=== PATIENT | female | born 1995 | race Caucasian/White ===

== ENCOUNTER → 2018-12-27 | Outpatient (CLI) | payer OTHER ==
[2018-12-27 17:34] LABS: BASO % 0.4 % (0.0-1.0); EOS % 0.3 % (0.0-3.0); HEMATOCRIT 36.9 % (36.0-47.0); LYMPH # 1.6 10^3/uL (1.5-6.5); LYMPH % 13.9 % (24.0-44.0); MEAN CORPUSCULAR HGB CONC 35.2 g/dl (32.0-36.5); MEAN CORPUSCULAR VOLUME 93.7 fl (80.0-96.0); MONO # 0.5 10^3/uL (0.0-0.8); MONO % 4.3 % (0.0-5.0); NEUTROPHILS % 80.7 % (36.0-66.0); PLATELET COUNT, AUTOMATED 300 10^3/uL (150-450); RED BLOOD COUNT 3.94 10^6/uL (4.00-5.40); WHITE BLOOD COUNT 11.2 10^3/uL (4.0-10.0)
[2018-12-27 18:11] LABS: GC DNA AMPLIFICATION NEGATIVE (NEGATIVE)
[2018-12-28 09:26] LABS: HIV 1&2 SCREEN CENTAUR NEGATIVE (NEGATIVE); RUBELLA IgG QUALITATIVE IMMUNE (IMMUNE)
[2018-12-28 10:21] LABS: CHLAMYDIA DNA AMPLIFICATION NEGATIVE (NEGATIVE)
== END ==
LOC: M LRY 12:00
PROVIDERS: ATTEND Advanced Practice Midwife
DX: Z34.81 Encounter for supervision of other normal pregnancy, first trimester (principal); Z3A.13 13 weeks gestation of pregnancy

== ENCOUNTER → 2019-01-26 | Outpatient (CLI) | payer OTHER ==
--- NOTE | 2019-01-26 15:11 | REP ---
Clinical: Anatomical evaluation. Comparison: None . Findings: Examination demonstrates a single live intrauterine in cephalic presentation. motion is identified by technologist. Placenta is noted anterior and grade grade zero without evidence for placenta previa or abruption. Amniotic fluid volume is normal. Cervix measures 4.1 cm in length and appears closed. No evidence for nuchal cord. Gestational age by LMP 18 weeks 6 days with DESEAN 06/23/2019 . Gestational age by current measurements 20 weeks 0 days with DESEAN 06/15/2019 . FHR equals 131 beats per minute. BPD 4.8 cm 20 weeks 3 days HC 18.1 cm 20 weeks 4 days AC 14.4 cm 19 weeks 5 days FL 3.3 cm 20 weeks 1 day HL 3.1 cm 20 weeks 2 days HC/AC ratio 1.26 Estimated weight 326 grams ( 47 percentile by current measurements; 91 percentile by LMP). Anatomical assessment demonstrates normal structures including cranium, choroid plexus, cavum, cerebellum/posterior fossa, lungs, four-chamber heart, diaphragm, stomach, cord insertion/three-vessel cord, kidneys/bladder, spine, and extremities. Limited evaluation of the facial features and cardiac ventricular outflow tracts. Impression: 1. Single live intrauterine demonstrating appropriate interval growth. 2. Limited evaluation of the facial features and cardiac ventricular outflow tracts may warrant reevaluation and follow-up. Remainder of the anatomical assessment is complete and normal. Electronically Signed by Yonas Shaffer MD 01/26/2019 03:02 P
== END ==
LOC: M LRY 13:16
PROVIDERS: ATTEND Advanced Practice Midwife
DX: Z34.82 Encounter for supervision of other normal pregnancy, second trimester (principal); Z3A.20 20 weeks gestation of pregnancy

== ENCOUNTER → 2019-02-22 | Outpatient (CLI) | payer OTHER ==
--- NOTE | 2019-02-22 15:14 | REP ---
OBSTETRIC SONOGRAPHY: HISTORY: Followup anatomy, facial features and outflow tract views. FINDINGS: Scanning through the gravid uterus demonstrates a viable single intrauterine gestation in a cephalic lie. motion is observed and heart rate is recorded at 150 beats per minute. An anterior grade 1 placenta is seen without evidence of previa. Amniotic fluid is subjectively normal. Closed cervical length is 3.4 cm measured transabdominally. No extrauterine abnormality is observed. There has been appropriate interval growth. No anomaly is seen. The following anatomic structures are identified today and felt to be unremarkable: cranium, choroid plexus, cavum, cerebellum posterior fossa, face and profile, lungs, four-chamber heart with left and right ventricular outflow tract views, diaphragm, left-sided stomach, abdominal wall cord insertion, three-vessel cord, kidneys and bladder, spine, upper and lower extremities. Biometry Chart: BPD 5.6 cm = 23 weeks 1 day HC 20.9 cm = 23 weeks 0 days AC 18.8 cm = 23 weeks 4 days FL 4.0 cm = 23 weeks 0 days HL 3.9 cm = 23 weeks 5 days CD 2.5 cm = 22 weeks 5 days HC/AC ratio normal 1.12. Cephalic index normal 0.74 Estimated weight 576 grams, 1 pound 4 ounces, 27th percentile for 23 weeks 6 days. IMPRESSION: Viable single intrauterine gestation at 22 weeks 6 days by today's composite sonographic criteria. Expected gestational age estimate based on prior sonography is 23 weeks 6 days. DESEAN by prior sonography June 15, 2019. anatomic survey is felt to be complete. Electronically Signed by Paulo Ku MD 02/22/2019 03:41 P
== END ==
LOC: M SMT 09:25
PROVIDERS: ATTEND Advanced Practice Midwife
DX: Z34.02 Encounter for supervision of normal first pregnancy, second trimester (principal); Z3A.22 22 weeks gestation of pregnancy

== ENCOUNTER → 2019-03-21 | Outpatient (CLI) | payer OTHER ==
[2019-03-21 14:12] LABS: BASO # 0.1 10^3/uL (0.0-0.2); BASO % 0.4 % (0.0-1.0); EOS % 0.4 % (0.0-3.0); HEMATOCRIT 35.7 % (36.0-47.0); HEMOGLOBIN 12.1 g/dl (12.0-15.5); LYMPH # 1.7 10^3/uL (1.5-6.5); LYMPH % 15.2 % (24.0-44.0); MEAN CORPUSCULAR HEMOGLOBIN 31.9 pg (27.0-33.0); MEAN CORPUSCULAR HGB CONC 33.9 g/dl (32.0-36.5); MEAN CORPUSCULAR VOLUME 94.2 fl (80.0-96.0); MONO # 0.6 10^3/uL (0.0-0.8); MONO % 5.6 % (0.0-5.0); NEUTROPHILS # 8.9 10^3/uL (1.8-7.7); PLATELET COUNT, AUTOMATED 238 10^3/uL (150-450); RED BLOOD COUNT 3.79 10^6/uL (4.00-5.40); WHITE BLOOD COUNT 11.4 10^3/uL (4.0-10.0)
== END ==
LOC: M LRY 09:06
PROVIDERS: ATTEND Advanced Practice Midwife
DX: Z34.83 Encounter for supervision of other normal pregnancy, third trimester (principal); Z3A.00 Weeks of gestation of pregnancy not specified
CPT/HCPCS: 36415; 82950; 85025; 86850; 86900; 86901; J2790

== ENCOUNTER → 2019-05-08 | Outpatient (REF) | payer OTHER | LOC: M LAB REF 13:06 | PROVIDERS: ATTEND Advanced Practice Midwife | DX: Z34.03 Encounter for supervision of normal first pregnancy, third trimester (principal) ==

== ENCOUNTER → 2019-05-30 | Outpatient (REF) | payer OTHER | LOC: M LAB REF 17:00 | PROVIDERS: ATTEND Advanced Practice Midwife | DX: Z34.03 Encounter for supervision of normal first pregnancy, third trimester (principal) ==

== ENCOUNTER → 2019-06-06 | Outpatient (CLI) | payer OTHER | LOC: M SMT 09:34 | PROVIDERS: ATTEND Advanced Practice Midwife | DX: Z34.03 Encounter for supervision of normal first pregnancy, third trimester (principal); Z36.89 Encounter for other specified antenatal screening ==

== ENCOUNTER 2019-06-30 | Inpatient (IN) | payer OTHER ==
[2019-06-30] VITALS (40 sets, daily range): BP systolic 93–132; BP diastolic 55–87
[~2019-06-30] VITALS: Ht 172.7 cm; Wt 81.0 kg
[2019-06-30] MEDS ORDERED: PRENTAB9 PO (00:37)
[2019-06-30] MEDS ORDERED: PENICILLIN G POTASSIUM IV 5 MU in D5W MINI-BAG PLUS 100 ML IV STA (00:45)
[2019-06-30] MEDS ORDERED: LACTATED RINGER'S 1000 ML IV STA (00:45)
--- NOTE | 2019-06-30 00:58 | HPEPDOC ---
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 Past Medical History Surgical History: Denies/None Family History Significant Family History: Hypertension Social History Marital Status: Single Family situation: Spouse/partner home Psychosocial History: No pertinent psych hx * Smoker: non-smoker Alcohol: Denies Drugs: denies Abuse Violence Screening Have you been hit/kicked/slapp: No Imunizations Tdap status: declined Allergies Coded Allergies: No Known Allergies (Unverified , 06/30/19) Medications Scheduled No.137/Iron/Folic Acd ( Vitamin Tablet) 1 Each Tablet, 1 TAB PO DAILY Physical Examination Physical Examination GENERAL: Alert and oriented times three. BREAST: . ABDOMEN: Gravid and non-tender to touch. FETUS: Is vertex (VTX) by sterile vaginal examination (SVE), fetus is vertex (VTX) by Aidan. HEART RATE: Regular rate and rhythm. LUNGS: Clear to auscultation (CTA). EXTREMITIES: No edema. No clonus. Deep tendon reflexes (DTRs) + 2. Laboratory Data 24H LABS Laboratory Tests 2 06/30/19 00:08: Serology Scanned Report Hepatitis B Testing Pertinent Laboratoy Data Blood Type: O- RBC Antibody Screen: Negative HIV: Negative Hepatitis B: Negative Hepatitis C: Negative Rapid Plasma Reagin: Nonreactive Rubella: Immune Chlamydia/Gonorrhea: Negative Group B Streptococcus: Positive Quad Screen Test: Declined Glucose Tolerance Test: 87 Anatomy Ultrasound Ultrasound Date: Jan 26, 2019 Placenta Location: Posterior Normal Anatomy: Yes Placenta Previa: No Estimated Weight (grams): 326 (47%) Other Ultrasounds 12/19/18 advanced gestation 02/22/19 anterior placenta, no previa, 576gm 27% Steroid Therapy Steroid Therapy: No Vaginal Examination Dilation: 2cm Effacement: 80% Station: -3 Cervical Consistency: Medium Cervical Position: Posterior Presentation: Cephalic presentation Assessment Heart Rate (FHR): 130 Variability: Moderate Accelerations: Positive Decelerations: None Tocometer Contractions: Yes Frequency: every 2-5 min. Strength: palpated as mild Assessment/Plan Assessment Patricia is a 23-year-old (G)1 para (P)0-0-0-0 at 41+0 weeks by 19-week ultrasound. Presents to Labor and Delivery (L&D) with reports of large gush of clear fluid @ 2310. Denies continued leakage of fluid. No bleeding. Fetus is active. Pt states she felt cramping all day but that contractions have picked up since the leakage. SVE membranes are palpable. 2/80/-3, moderate texture. Pt is scheduled for induction later today Plan Admit and orient. Home And Family Living Professor and consent. Diet: regular. Group B Streptococcus (GBS) positive. Labs and intravenous (IV) per unit protocol. Counseled on Pitocin and induction of labor (IOL). Lactated Ringers (LR): Bolus 500 mL, then saline lock. Planning epidural Anticipate normal spontaneous delivery (). C-S as appropriate. Sherita Gomez CNM Jun 30, 2019 00:58
[2019-06-30 01:10] LABS: HEMATOCRIT 33.3 % (36.0-47.0); HEMOGLOBIN 11.2 g/dl (12.0-15.5); MEAN CORPUSCULAR HEMOGLOBIN 29.6 pg (27.0-33.0); MEAN CORPUSCULAR HGB CONC 33.6 g/dl (32.0-36.5); MEAN CORPUSCULAR VOLUME 88.1 fl (80.0-96.0); PLATELET COUNT, AUTOMATED 220 10^3/uL (150-450); RED BLOOD COUNT 3.78 10^6/uL (4.00-5.40); WHITE BLOOD COUNT 12.3 10^3/uL (4.0-10.0)
[2019-06-30] MEDS ORDERED: miSOPROStol 50 MCG 1/2 TAB (S0191) PO SCH (02:00)
[2019-06-30] MEDS: PENICILLIN G POTASSIUM IV 2.5 MU in APPROPRIATE DILUENT 1 EA IV SCH ×5 (05:34→22:36)
--- NOTE | 2019-06-30 08:39 | IPNPDOC ---
Text Note Date of Service The patient was seen on 06/30/19. NOTE Becoming more uncomfortable, considering epidural FH 130, Cat I UC 3-4 minutes x 45-120 seconds SVE 3-4/90/-1, bulging forebag Start pitocin, plan epidural VS,Fishbone, I+O VS, Fishbone, I+O Laboratory Tests 06/30/19 01:04 Red Blood Count 3.78 L, Mean Corpuscular Volume 88.1, Mean Corpuscular Hemoglobin 29.6, Mean Corpuscular Hemoglobin Concent 33.6, Red Cell Distribution Width 11.9 Vital Signs Date Time Temp Pulse Resp B/P (MAP) Pulse Ox O2 Delivery O2 Flow Rate FiO2 06/30/19 07:15 97.4 47 16 115/69 (84) I&O- Last 24 Hours up to 6 AM 06/30/19 06:00 Intake Total 700 ml Balance 700 ml Sherita Gomez CNM Jun 30, 2019 08:39
[2019-06-30] MEDS ORDERED: OXYTOCIN DRIP 30 UNITS in APPROPRIATE DILUENT 1 EA IV SCH ×2 (08:45→20:45)
[2019-06-30] MEDS ORDERED: FENTANYL 2MCG/ML ROPIVACAINE 0.2% IN 0.9% NACL 100ML IVBAG As Ordered ONE (09:02)
[2019-06-30] MEDS: LR 1,000 ML IV SCH ×2 (09:31→15:46)
[2019-06-30] MEDS ORDERED: NALOXONE INJ 0.4 MG/1 ML VIAL (J2310) IV PRN (10:15)
[2019-06-30] MEDS ORDERED: REFRIGERATOR IV KEYS XX PRN (10:15)
[2019-06-30] MEDS ORDERED: ePHEDrine SULFATE 25 MG/5 ML(5MG/ML) SYRINGE IV PRN (10:15)
[2019-06-30] MEDS ORDERED: LACTATED RINGER'S 1000 ML IV PRN (10:15)
[2019-06-30] MEDS ORDERED: EPIDURAL/PCA KEYS XX PRN (10:15)
[2019-06-30] MEDS ORDERED: ONDANSETRON 4MG/2ML VIAL (J2405) IV PRN (10:15)
[2019-06-30] MEDS ORDERED: diphenhydrAMINE INJ 50MG/ML VIAL (J1200) IV PRN (10:15)
[2019-06-30] MEDS ORDERED: EPIDURAL COMMENT XX SCH (10:15)
[2019-06-30] MEDS: FENTANYL/ROPIVACAINE/NACL BAG 100 ML EPIDURAL SCH ×2 (13:23→17:39)
[2019-07-01] VITALS (10 sets, daily range): BP systolic 103–129; BP diastolic 64–82
[2019-07-01] MEDS ORDERED: OXYTOCIN DRIP 30 UNITS in APPROPRIATE DILUENT 1 EA IV SCH ×3 (02:14→03:15)
[2019-07-01] MEDS ORDERED: LR 1,000 ML IV SCH ×2 (02:14→03:15)
[2019-07-01] MEDS ORDERED: IBUPROFEN 800 MG TAB PO PRN ×3 (02:15→03:15)
[2019-07-01] MEDS ORDERED: DIBUCAINE 1% OINTMENT 30GM TOP PRN ×2 (02:15→03:15)
[2019-07-01] MEDS ORDERED: IBUPROFEN 600 MG TAB PO PRN (02:15)
[2019-07-01] MEDS ORDERED: MEASLES,MUMPS,RUBELLA VACCINE INJ (MMR-II) (90707) SC SCH ×2 (02:15→03:15)
[2019-07-01] MEDS ORDERED: PROMETHAZINE 25 MG TAB PO PRN ×3 (02:15→03:15)
[2019-07-01] MEDS ORDERED: ACETAMINOPHEN 500 MG TAB PO PRN ×3 (02:15→03:15)
[2019-07-01] MEDS ORDERED: ONDANSETRON 4MG/2ML VIAL (J2405) IV PRN ×3 (02:15→03:15)
[2019-07-01] MEDS ORDERED: DOCUSATE SODIUM 100 MG CAP PO PRN ×3 (02:15→03:15)
[2019-07-01] MEDS ORDERED: RHOGAM 300 MCG (1500 IU) INJ (J2790) IM SCH ×2 (02:15→03:15)
[2019-07-01] MEDS ORDERED: ACETAMINOPHEN TAB 650MG DOSE (2X325MG) PO PRN ×2 (02:15→03:15)
[2019-07-01 02:23] LABS: CORD GAS ABE A -11.9; CORD GAS HCO3 A 19.9 MEQ/L; CORD GAS O2 SAT A 68.4 %; CORD GAS PCO2 A 69.8 mmHg; CORD GAS PH A 7.072 UNITS; CORD GAS SBC A 14.8 MEQ/L
[2019-07-01 02:25] LABS: CORD GAS ABE V -8.6; CORD GAS O2 SAT V 67.5 %; CORD GAS PCO2 V 46.5 mmHg; CORD GAS PH V 7.23 UNITS; CORD GAS PO2 V 32.6 mmHg; CORD GAS SBC V 17.1 MEQ/L; CORD GAS TCO2 V 20.5 MEQ/L
[2019-07-01] MEDS ORDERED: SLF 3 ML SYR IV PRN (04:45)
[2019-07-01] MEDS: PRENATAL VITAMINS CHEWABLE TABLET PO SCH (07:52)
[2019-07-01] MEDS: IBUPROFEN 600 MG TAB PO PRN (07:53)
[2019-07-01] MEDS ORDERED: PRENATAL VITAMINS CHEWABLE TABLET PO SCH (09:00)
[2019-07-02 06:30] VITALS: BP 109/57
[2019-07-02] MEDS: PRENATAL VITAMINS CHEWABLE TABLET PO SCH (07:36)
[2019-07-02 18:00] VITALS: BP 111/58
[2019-07-03 06:22] VITALS: BP 113/66
[2019-07-03] MEDS ORDERED: IBUP80TA PO (07:59)
[2019-07-03] MEDS ORDERED: ACET-683 PO (07:59)
[2019-07-03] MEDS: IBUPROFEN 600 MG TAB PO PRN (08:00)
[2019-07-03] MEDS: PRENATAL VITAMINS CHEWABLE TABLET PO SCH (08:36)
== END 2019-07-03 13:10 | disposition home or self-care (01) | DRG 560 ==
LOC: M LDI → M OBS 07-01 04:01
PROVIDERS: ADMIT Advanced Practice Midwife; ATTEND Obstetrics & Gynecology
PROC: 10E0XZZ Delivery of Products of Conception, External Approach (ICD-10-PCS; principal; 2019-07-01)
DX: O48.0 Post-term pregnancy (principal); Z3A.41 41 weeks gestation of pregnancy; O99.824 Streptococcus B carrier state complicating childbirth; Z37.0 Single live birth

== ENCOUNTER 2019-08-09 14:37 | Emergency (ER) | payer OTHER, MEDICAID ==
[~2019-08-09] VITALS: Ht 172.7 cm; Wt 72.6 kg
[~2019-08-09 14:37] MED LIST: ACET-683 PO; IBUP80TA PO; PRENTAB9 PO
[2019-08-09] MEDS ORDERED: NS 1,000 ML IV SCH (15:06)
[2019-08-09 16:04] LABS: BASO # 0.1 10^3/uL (0.0-0.2); BASO % 0.5 % (0.0-1.0); EOS % 0.2 % (0.0-3.0); HEMATOCRIT 42.1 % (36.0-47.0); HEMOGLOBIN 13.9 g/dl (12.0-15.5); LYMPH # 1.4 10^3/uL (1.5-5.0); MEAN CORPUSCULAR VOLUME 87.7 fl (80.0-96.0); MONO # 0.5 10^3/uL (0.0-0.8); MONO % 5.2 % (0.0-5.0); NEUTROPHILS # 8.2 10^3/uL (1.5-8.5); NEUTROPHILS % 79.7 % (36.0-66.0); PLATELET COUNT, AUTOMATED 234 10^3/uL (150-450); WHITE BLOOD COUNT 10.3 10^3/uL (4.0-10.0)
[2019-08-09] MEDS ORDERED: ACETAMINOPHEN 325 MG TAB PO ONE (16:15)
[2019-08-09] MEDS ORDERED: METOCLOPRAMIDE INJ 10MG/2ML VIAL (J2765) IV ONE (16:15)
[2019-08-09 16:37] LABS: HCG, SERUM QUALITATIVE NEGATIVE (NEGATIVE)
[2019-08-09 16:42] LABS: ALBUMIN 4.3 GM/DL (3.2-5.2); ALT/SGPT 71 U/L (12-78); BILIRUBIN,DIRECT 0.1 MG/DL (0.0-0.2); BILIRUBIN,TOTAL 0.3 MG/DL (0.2-1.0); BLOOD UREA NITROGEN 8 MG/DL (7-18); CALCIUM LEVEL 9.7 MG/DL (8.5-10.1); CARBON DIOXIDE LEVEL 30 MEQ/L (21-32); CHLORIDE LEVEL 104 MEQ/L (98-107); CK-MB VALUE MASS 2.1 NG/ML (<3.6); CPK CREATINE PHOSPHOKINASE 191 U/L (26-192); CREATININE FOR GFR 1.21 MG/DL (0.55-1.30); GLOMERULAR FILTRATION RATE 58.7 (>60); GLUCOSE, FASTING 87 MG/DL (70-100); POTASSIUM SERUM 3.8 MEQ/L (3.5-5.1); SALICYLATE LEVEL < 1.7 MG/DL (5.0-30.0); SODIUM LEVEL 141 MEQ/L (136-145); TOTAL PROTEIN 8.2 GM/DL (6.4-8.2); TROPONIN I < 0.02 NG/ML (< 0.10)
[2019-08-09 16:43] LABS: ACETAMINOPHEN LEVEL < 2.0 UG/ML (10.0-30.0); ETHYL ALCOHOL (ETHANOL) < 0.003 % (0.000-0.010)
--- NOTE | 2019-08-09 16:56 | REP ---
Head CT without contrast: History: Altered mental status. Comparison study: No comparison study. CT findings: Bone window settings demonstrate an intact bony calvarium. There is no evidence of skull fracture or incidental bony calvarial lesion. The visualized paranasal sinuses appear clear. No intraorbital abnormality is seen. On soft tissue window setting images; the lateral, third, and fourth ventricles are normal in size and position. Short-white differentiation pattern is normal above and below the tentorium. There are is no evidence of intracranial hemorrhage. No mass, edema, infarction, or midline shift is seen. No extra-axial fluid collection is appreciated. Impression: Negative noncontrast head CT. Electronically Signed by Paulo Ku MD 08/09/2019 04:48 P
--- NOTE | 2019-08-09 17:27 | REP ---
Chest x-ray: Two views. History: Third mental status. . Comparison study: No comparison. . Findings: The lungs are well inflated and free of infiltrate. The pleural angles are sharp. The heart size is normal. Pulmonary vasculature is not increased. No significant bony abnormality is seen. EKG monitoring electrodes are seen. Impression: Negative chest x-ray. Electronically Signed by Paulo uK MD 08/09/2019 05:17 P
[2019-08-09 17:47] LABS: AMPHETAMINES LEVEL URINE NEGATIVE (NEGATIVE); BARBITURATES URINE NEGATIVE (NEGATIVE); BENZODIAZEPINES URINE NEGATIVE (NEGATIVE); CANNABINOIDS URINE NEGATIVE (NEGATIVE); COCAINE METABOLITE URINE NEGATIVE (NEGATIVE); METHADONE URINE NEGATIVE (NEGATIVE); OPIATES URINE NEGATIVE (NEGATIVE); PHENCYCLIDINE URINE NEGATIVE (NEGATIVE)
[2019-08-09 18:11] VITALS: BP 126/72
--- NOTE | 2019-08-09 20:39 | ECGEPIP ---
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
== END 2019-08-09 18:13 | disposition home or self-care (01) ==
LOC: EDBD 14:37 → M ED 14:37
DX: O99.355 Diseases of the nervous system complicating the puerperium (principal); R56.9 Unspecified convulsions
CPT/HCPCS: 70450; 71046; 80048; 80076; 80307; 81001; 82140; 82550; 82553; 83605; 84443; 84484; 84703; 85025; 93005; 93041; 94760; 96374; 99285; G0480; J2765

== ENCOUNTER → 2020-04-02 | Outpatient (REF) | payer OTHER, MEDICAID | LOC: M SFHCLERA 13:10 | PROVIDERS: ATTEND Physician Assistant | DX: R30.0 Dysuria (principal) ==

== ENCOUNTER → 2020-12-15 | Outpatient (CLI) | payer OTHER ==
--- NOTE | 2020-12-16 09:25 | REP ---
INDICATION: NODULE OF RT BREAST, ECHO 1ST THEN US. COMPARISON: None. TECHNIQUE: Real-time sonographic evaluation of right medial chest wall performed at the costosternal junction, superior to the right breast. FINDINGS: No cystic or solid nodule is seen. No fluid collection is seen. IMPRESSION: No sonographic abnormality right medial chest wall at the costosternal junction. <Electronically signed by Han Short > 12/16/20 [id number]
--- NOTE | 2020-12-16 09:34 | ECHO ---
DATE OF PROCEDURE: 12/15/2020 Age: 25 Gender: Female Height: 170 cm Weight: 63 kg REFERRING PHYSICIAN: Nahomy Jones PA-C INDICATION: Arrhythmia. MEASUREMENTS: IVS 0.8 cm LV 5.0 cm LVPW 0.9 cm LA 2.6 cm Aorta 2.4 cm RV 2.7 cm IVC 1.3 cm DOPPLER MEASUREMENT Mitral E wave velocity 80 Mitral A 49 E prime septal 10.3 E prime lateral 15.0 FINDINGS: This study is of good technical quality. Underlying sinus rhythm with narrow QRS complex. Normal LV size with normal LV systolic function. Estimated LVEF 60% to 65%. Right ventricle also has normal size and systolic function. Both atria appear normal. All four cardiac valves were well seen and appear normal. No pericardial effusion is noted. Inferior vena cava is of normal size and appropriately collapses with inspiration indicative of normal central venous pressure. Aortic root, aortic arch, and visualized segment of the abdominal aorta all appear normal. Doppler interrogation reveals competent aortic valve. There is trace mitral and trace tricuspid insufficiency. Calculated pulmonary artery pressure is around 20 mmHg corresponding to normal values. The pulmonic valve is functionally competent. Mitral inflow pattern and tissue Doppler imaging of the mitral annulus revealed normal diastolic function. CONCLUSIONS: 1. Study is of good technical quality. Underlying sinus rhythm with narrow QRS complex. 2. Normal LV size, systolic and diastolic function. 3. No significant valvular disease. 4. Normal central venous pressure. Normal pulmonary artery pressure. 5. Normal echocardiogram. MTDD
== END ==
LOC: M CARPUL 11:55
PROVIDERS: ATTEND Physician Assistant Medical
DX: I49.8 Other specified cardiac arrhythmias (principal); R59.0 Localized enlarged lymph nodes

== ENCOUNTER 2021-04-05 18:15 | Emergency (ER) | payer OTHER ==
[~2021-04-05] VITALS: Ht 172.7 cm; Wt 61.8 kg
[2021-04-05 19:24] LABS: BASO # 0.1 10^3/uL (0.0-0.2); BASO % 0.6 % (0.0-1.0); EOS % 0.4 % (0.0-3.0); HEMATOCRIT 40.6 % (36.0-47.0); LYMPH # 2.3 10^3/uL (1.5-5.0); MEAN CORPUSCULAR HEMOGLOBIN 33.3 pg (27.0-33.0); MEAN CORPUSCULAR HGB CONC 34.5 g/dl (32.0-36.5); MEAN CORPUSCULAR VOLUME 96.7 fl (80.0-96.0); MONO # 0.5 10^3/uL (0.0-0.8); MONO % 5.1 % (2.0-8.0); NEUTROPHILS # 7.1 10^3/uL (1.5-8.5); NEUTROPHILS % 70.7 % (36.0-66.0); PLATELET COUNT, AUTOMATED 242 10^3/uL (150-450)
[2021-04-05 19:46] LABS: CK-MB VALUE MASS < 1.0 NG/ML (<3.6); CPK CREATINE PHOSPHOKINASE 75 U/L (26-192); MB/CK RELATIVE INDEX 1.33 (< OR =4); TROPONIN I < 0.02 NG/ML (< 0.10)
[2021-04-05 19:47] LABS: ERYTHROCYTE SEDIMENTATION RATE 5 mm/hr (0-20)
--- NOTE | 2021-04-05 20:46 | REPVR ---
PROCEDURE INFORMATION: Exam: XR Chest Exam date and time: 04/05/2021 8:22 PM Age: 25 years old Clinical indication: Chest pain TECHNIQUE: Imaging protocol: XR of the chest. Views: 2 views. COMPARISON: AK Chest, 2 view PA, Lat 08/09/2019 4:49 PM FINDINGS: Lungs: Unremarkable. No consolidation. No pulmonary edema. Pleural spaces: Unremarkable. No pleural effusion. No pneumothorax. Heart/Mediastinum: Unremarkable. No cardiomegaly. Bones/joints: There is a slight levoscoliosis of the lumbar spine. IMPRESSION: No acute findings. Electronically signed by: Aydin Salgado On 04/05/2021 20:45:44 PM
[2021-04-05 21:02] VITALS: BP 127/71
--- NOTE | 2021-04-06 20:01 | ECGEPIP ---
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
== END 2021-04-05 21:10 | disposition home or self-care (01) ==
LOC: M ED 18:15
DX: R07.9 Chest pain, unspecified (principal)

== ENCOUNTER → 2021-05-27 | Outpatient (CLI) | payer OTHER, BC ==
[2021-05-27 17:42] LABS: BASO # 0.1 10^3/uL (0.0-0.2); BASO % 0.4 % (0.0-1.0); EOS % 0.3 % (0.0-3.0); HEMATOCRIT 39.2 % (36.0-47.0); HEMOGLOBIN 13.7 g/dl (12.0-15.5); LYMPH % 14.7 % (24.0-44.0); MEAN CORPUSCULAR HEMOGLOBIN 33.5 pg (27.0-33.0); MEAN CORPUSCULAR HGB CONC 34.9 g/dl (32.0-36.5); MEAN CORPUSCULAR VOLUME 95.8 fl (80.0-96.0); MONO # 0.6 10^3/uL (0.0-0.8); MONO % 4.3 % (2.0-8.0); NEUTROPHILS % 79.9 % (36.0-66.0); PLATELET COUNT, AUTOMATED 247 10^3/uL (150-450); RED BLOOD COUNT 4.09 10^6/uL (4.00-5.40); WHITE BLOOD COUNT 13.8 10^3/uL (4.0-10.0)
[2021-05-27 18:55] LABS: HEPATITIS B SURFACE ANTIGEN NEGATIVE (NEGATIVE); HEPATITIS C VIRUS ABY INDEX < 0.0 INDEX (<0.8); HIV 1&2 SCREEN CENTAUR NEGATIVE (NEGATIVE)
[2021-05-27 19:19] LABS: GC DNA AMPLIFICATION NEGATIVE (NEGATIVE)
== END ==
LOC: M PLALAB 15:27
PROVIDERS: ATTEND Advanced Practice Midwife
DX: Z34.81 Encounter for supervision of other normal pregnancy, first trimester (principal)

== ENCOUNTER → 2021-06-04 | Outpatient (CLI) | payer OTHER, BC | LOC: M PLALAB 12:50 | PROVIDERS: ATTEND Advanced Practice Midwife | DX: Z36.89 Encounter for other specified antenatal screening (principal) ==

== ENCOUNTER → 2021-08-07 | Outpatient (CLI) | payer BC ==
--- NOTE | 2021-08-07 09:54 | REP ---
INDICATION: ANATOMY. COMPARISON: None. TECHNIQUE: Real-time sonographic evaluation of the gravid uterus performed. FINDINGS: Estimated gestational age is21 weeks 2 days, EDC 12/16/2021. Today's measurements indicate appropriate growth. Presentation: Cephalic Placenta anterior, grade 0, without evidence of placenta previa. heart rate is recorded at 149 beats per minute. Amniotic fluid is subjectively normal. Closed cervical length is measured at 3.6 cm. Biometry chart: BPD: 49 mm, 20 weeks 6 days, 39th percentile. HC: 185 mm, 20 weeks 6 days, 37th percentile AC: 160 mm, 21 weeks 0 days, 45th percentile Femur length: 37 mm, 21 weeks 5 days, 60th percentile HC to AC ratio: 1.16, normal range 1.05-1.24. Estimated weight: 413g, 45th percentile. anatomy: Cranium: Grossly normal Lateral Ventricles/Choroid Plexus: Grossly normal Posterior Fossa/Cerebellum: Grossly normal Nose/lips/profile: Grossly normal Four chamber heart: Grossly normal Right ventricular outflow tract: Grossly normal Left ventricular outflow tract: Grossly normal Left-sided stomach: Grossly normal Kidneys: Grossly normal Bladder: Grossly normal Cord Insertion: Grossly normal 3 vessel cord: Grossly normal Spine: Grossly normal IMPRESSION: Viable single intrauterine gestation as above. <Electronically signed by Han Short > 08/07/21 [id number]
== END ==
LOC: M WHC 08:42
PROVIDERS: ATTEND Advanced Practice Midwife
DX: Z34.82 Encounter for supervision of other normal pregnancy, second trimester (principal)

== ENCOUNTER → 2021-08-18 | Outpatient (REF) | payer BC | LOC: M SFHCWAGY 16:52 | PROVIDERS: ATTEND Specialist | DX: N39.0 Urinary tract infection, site not specified (principal) ==

== ENCOUNTER → 2021-10-07 | Outpatient (CLI) | payer BC ==
[2021-10-07 15:44] LABS: HEMATOCRIT 35.4 % (36.0-47.0); MEAN CORPUSCULAR HEMOGLOBIN 32.3 pg (27.0-33.0); MEAN CORPUSCULAR HGB CONC 33.9 g/dl (32.0-36.5); MEAN CORPUSCULAR VOLUME 95.4 fl (80.0-96.0); PLATELET COUNT, AUTOMATED 220 10^3/uL (150-450); RED BLOOD COUNT 3.71 10^6/uL (4.00-5.40); WHITE BLOOD COUNT 12.3 10^3/uL (4.0-10.0)
[2021-10-07 17:04] LABS: GC DNA AMPLIFICATION NEGATIVE (NEGATIVE)
== END ==
LOC: M PLALAB 10:54
PROVIDERS: ATTEND Specialist
DX: Z36.9 Encounter for antenatal screening, unspecified (principal); Z3A.00 Weeks of gestation of pregnancy not specified
CPT/HCPCS: 36415; 82950; 85027; 86850; 86900; 86901; 87491; 87591; J2790

== ENCOUNTER → 2021-10-20 | Outpatient (REF) | payer BC | LOC: M SFHCWAGY 17:03 | PROVIDERS: ATTEND Advanced Practice Midwife | DX: Z36.9 Encounter for antenatal screening, unspecified (principal); Z3A.00 Weeks of gestation of pregnancy not specified ==

== ENCOUNTER → 2021-11-17 | Outpatient (REF) | payer BC | LOC: M SFHCWAGY 12:44 | PROVIDERS: ATTEND Obstetrics & Gynecology | DX: Z36.89 Encounter for other specified antenatal screening (principal); Z3A.35 35 weeks gestation of pregnancy ==

== ENCOUNTER 2021-12-19 13:38 | Inpatient (IN) | payer BC ==
[~2021-12-19] VITALS: Ht 172.7 cm; Wt 77.1 kg
[2021-12-19] VITALS (9 sets, daily range): BP systolic 116–131; BP diastolic 62–81
[2021-12-19] MEDS ORDERED: MULTTAB20 PO (14:01)
[2021-12-19] MEDS ORDERED: HOME MED LIST COMPLETE! XX SCH (14:05)
[2021-12-19 14:55] LABS: HEMATOCRIT 34.4 % (36.0-47.0); HEMOGLOBIN 11.6 g/dl (12.0-15.5); MEAN CORPUSCULAR HEMOGLOBIN 30.4 pg (27.0-33.0); MEAN CORPUSCULAR HGB CONC 33.7 g/dl (32.0-36.5); MEAN CORPUSCULAR VOLUME 90.1 fl (80.0-96.0); PLATELET COUNT, AUTOMATED 196 10^3/uL (150-450); RED BLOOD COUNT 3.82 10^6/uL (4.00-5.40); WHITE BLOOD COUNT 10.9 10^3/uL (4.0-10.0)
[2021-12-19] MEDS ORDERED: METHYLERGONOVINE MALEATE 0.2 MG/ML VIAL (J2210) IM PRN (16:20)
[2021-12-19] MEDS ORDERED: LIDOCAINE 1% MDV 20ML VIAL INFIL PRN (16:20)
[2021-12-19] MEDS ORDERED: TRANEXAMIC ACID INJection 1,000 MG in NS 100 ML IV PRN (16:20)
[2021-12-19] MEDS ORDERED: CARBOPROST TROMETHAMINE 250 MCG/ML AMP IM PRN (16:20)
[2021-12-19] MEDS ORDERED: miSOPROStol 50MCG 1/2 TABLET PO ONE ×2 (16:30→20:45)
[2021-12-19] MEDS ORDERED: FENTANYL 2MCG/ML ROPIVACAINE 0.2% IN 0.9% NACL 100ML IVBAG As Ordered ONE (22:52)
[2021-12-19] MEDS ORDERED: OXYTOCIN 30 UNITS IN 0.9% NaCl 500ML IV BAG (J2590) As Ordered ONE (23:12)
[2021-12-19] MEDS ORDERED: DIBUCAINE 1% OINTMENT 30GM TOP PRN (23:45)
[2021-12-19] MEDS ORDERED: ACETAMINOPHEN TAB 650MG DOSE (2X325MG) PO PRN (23:45)
[2021-12-19] MEDS ORDERED: MOM 30ML SUSPENSION UDC PO PRN (23:45)
[2021-12-19] MEDS ORDERED: ACETAMINOPHEN 500 MG TAB PO PRN (23:45)
[2021-12-19] MEDS ORDERED: METHYLERGONOVINE MALEATE 0.2 MG TAB PO PRN (23:45)
[2021-12-19] MEDS ORDERED: OXYTOCIN DRIP 30 UNITS in IV 1 EA IV SCH (23:45)
[2021-12-19] MEDS ORDERED: IBUPROFEN 600MG TAB PO PRN (23:45)
[2021-12-19] MEDS ORDERED: DOCUSATE SODIUM 100MG CAPSULE PO PRN (23:45)
[2021-12-19] MEDS ORDERED: MEASLES,MUMPS,RUBELLA VACCINE INJ (MMR-II) (90707) SC SCH (23:45)
[2021-12-19] MEDS ORDERED: RHOGAM 300 MCG (1500 IU) INJ (J2790) IM SCH (23:45)
[2021-12-20 00:06] VITALS: BP 126/78
[2021-12-20 01:10] VITALS: BP 120/68
[2021-12-20] MEDS: IBUPROFEN 800 MG TAB PO PRN ×2 (01:10→18:20)
[2021-12-20 05:56] VITALS: BP 141/85
[2021-12-20] MEDS: PRENATAL VITAMINS CHEWABLE TABLET PO SCH (09:59)
[2021-12-20 18:00] VITALS: BP 134/85
[2021-12-21 06:00] VITALS: BP 120/68
[2021-12-21] MEDS: PRENATAL VITAMINS CHEWABLE TABLET PO SCH (07:39)
[2021-12-21] MEDS: IBUPROFEN 800 MG TAB PO PRN (07:42)
[2021-12-21 08:00] VITALS: BP 120/68
[2021-12-21] MEDS ORDERED: ACET-683 PO (10:16)
[2021-12-21] MEDS ORDERED: IBUP80TA PO (10:16)
== END 2021-12-21 10:53 | disposition home or self-care (01) | DRG 560 ==
LOC: M LDI 13:38 → M OBS 12-20 01:00
PROVIDERS: ADMIT Obstetrics & Gynecology; ATTEND Obstetrics & Gynecology
PROC: 10E0XZZ Delivery of Products of Conception, External Approach (ICD-10-PCS; principal; 2021-12-19)
PROC: 3E033VJ Introduction of Other Hormone into Peripheral Vein, Percutaneous Approach (ICD-10-PCS; 2021-12-19)
DX: O48.0 Post-term pregnancy (principal); O69.81X0 Labor and delivery complicated by cord around neck, without compression, not applicable or unspecified; Z3A.40 40 weeks gestation of pregnancy; Z37.0 Single live birth

== ENCOUNTER → 2024-07-16 | Outpatient (REF) | payer OTHER ==
[~2024-07-16] MED LIST changes: +MULTTAB20 PO
[2024-07-19 13:54] LABS: HPV APTIMA Not Detected (Not Detected)
== END ==
LOC: M LAB REF 17:10
PROVIDERS: ATTEND Nurse Practitioner Family
DX: Z01.419 Encounter for gynecological examination (general) (routine) without abnormal findings (principal)

== ENCOUNTER 2025-11-01 09:04 | Day surgery (SDC) | payer OTHER ==
[~2025-11-01] VITALS: Ht 172.7 cm; Wt 64.4 kg
[~2025-11-01 09:04] MED LIST changes: +LIDOCAINE 2% 100 MG/5 ML SDV (FOR ANES.) As Ordered ONE; +ONDANSETRON 4MG/2ML VIAL As Ordered ONE; +ROCURONIUM BROMIDE 50MG/5ML VIAL As Ordered ONE; +SUGAMMADEX SODIUM 500 MG/5 ML VIAL As Ordered ONE; +dexAMETHasone 4 MG/ML 1 ML VIAL As Ordered ONE; +dexAMETHasone 4 MG/ML 1 ML VIAL IV ONE
[2025-11-01] MEDS ORDERED: MIDAZOLAM INJ 2 MG/2 ML VIAL As Ordered ONE (09:46)
[2025-11-01] MEDS ORDERED: LR 1,000 ML IV SCH (09:50)
[2025-11-01] MEDS: AMPICILLIN SOD/SULBACTAM SOD 3 GM in DEXTROSE 5% (D5W) MINI-BAG PLU 100 ML IV ONE (10:53)
[2025-11-01] MEDS ORDERED: ACETAMINOPHEN 1000MG/100ML IV BAG As Ordered ONE (11:00)
[2025-11-01] MEDS: CHLORHEXIDINE GLUCONATE 0.12% 15 ML UDC As Ordered ONE (11:00)
[2025-11-01] MEDS: OXYMETAZOLINE 0.05% NASAL SPRAY As Ordered ONE (11:03)
[2025-11-01] MEDS ORDERED: HYDROMORPHONE HCL 0.5 MG/0.5 ML SYRINGE IV PRN (11:10)
[2025-11-01] MEDS ORDERED: MORPHINE 2 MG/ML 1 ML VIAL IV PRN (11:10)
[2025-11-01] MEDS ORDERED: ONDANSETRON 4MG/2ML VIAL IV PRN (11:10)
[2025-11-01 12:20] VITALS: BP 123/77; TEMP 98.2; O2SAT 98
== END 2025-11-01 12:41 | disposition home or self-care (01) ==
LOC: M SDC 09:04
PROVIDERS: ATTEND Dentist
DX: K02.9 Dental caries, unspecified (principal); K08.89 Other specified disorders of teeth and supporting structures
CPT/HCPCS: 88300; D7210; J0131; J0295; J1100; J2250; J2405; J3010